=== PATIENT | male | born 1960 | race Two or more races ===

== ENCOUNTER 2022-10-19 14:03 | Inpatient (IN) | payer OTHER ==
[2022-10-19 15:03] VITALS: BMI 23.3
[2022-10-19] MEDS ORDERED: MAG HYDROX/AL HYDROX/SIMETH 30 ML UNIT-DOSE CUP PO PRN (20:06)
[2022-10-19] MEDS ORDERED: BISMUTH SUBSALICYLATE 524 MG/30 ML PO PRN (20:06)
[2022-10-19] MEDS ORDERED: IBUPROFEN 400 MG TABLET (FP) PO PRN (20:06)
[2022-10-19] MEDS ORDERED: MELATONIN 5 MG TABLETS PO PRN (20:06)
[2022-10-19] MEDS ORDERED: ACETAMINOPHEN 325 MG TABLET (FP) PO PRN ×2 (20:06)
[2022-10-19] MEDS ORDERED: NICOTINE 7 MG/24 HOURS TOPICAL PATCH TD PRN (20:06)
[2022-10-19] MEDS ORDERED: DICYCLOMINE HCL 10 MG CAPSULE PO PRN (20:06)
[2022-10-19] MEDS ORDERED: BENZOCAINE/MENTHOL (CHLORASEPTIC ) LOZENGE MM PRN (20:06)
[2022-10-19] MEDS ORDERED: ONDANSETRON *ODT* 4 MG TABLET SL PRN (20:06)
[2022-10-19] MEDS ORDERED: POLYETHYLENE GLYCOL (HEALTHYLAX) 3350 17 GM PACKET PO PRN (20:06)
[2022-10-19] MEDS ORDERED: MAGNESIUM HYDROX 2400MG/30ML ORAL SUSPENSION 30 ML CUP PO PRN (20:06)
[2022-10-19] MEDS ORDERED: METHOCARBAMOL 500 MG TABLET PO PRN (20:06)
[2022-10-19] MEDS ORDERED: LOPERAMIDE HCL 2 MG CAPSULE PO PRN (20:06)
[2022-10-19] MEDS ORDERED: IBUPROFEN 600 MG TABLET (FP) PO PRN (20:06)
[2022-10-19] MEDS ORDERED: guaiFENesin 200 MG/10 ML 10 ML UNIT-DOSE CUPS PO PRN (20:06)
[2022-10-19] MEDS: THIAMINE HCL 100 MG TABLET (FP) PO SCH (23:23)
[2022-10-20] MEDS ORDERED: PRENATAL VITAMINS W/ FOLIC ACID TABLET (FP) PO SCH ×2 (10:00→15:45)
[2022-10-20 18:31] VITALS: RESP 18
[2022-10-20] MEDS ORDERED: QUEtiapine FUMARATE 50 MG TABLET PO SCH (22:00)
[2022-10-20] MEDS: THIAMINE HCL 100 MG TABLET (FP) PO SCH (22:37)
[2022-10-21 09:30] VITALS: BP 122/71; PULSE 95; TEMP 98.1
== END 2022-10-21 10:28 | disposition home or self-care (01) | DRG 897 ==
LOC: YASAS 14:03 → Y6N 21:44
PROVIDERS: ADMIT Allergy & Immunology; ATTEND Surgery
PROC: HZ2ZZZZ Detoxification Services for Substance Abuse Treatment (ICD-10-PCS; principal; 2022-10-19)
DX: F10.230 Alcohol dependence with withdrawal, uncomplicated (principal); F17.210 Nicotine dependence, cigarettes, uncomplicated; G47.00 Insomnia, unspecified; M25.551 Pain in right hip; M25.552 Pain in left hip; Z86.19 Personal history of other infectious and parasitic diseases; Z99.89 Dependence on other enabling machines and devices; Z28.310 Unvaccinated for COVID-19; Z28.9 Immunization not carried out for unspecified reason; Z88.8 Allergy status to other drugs, medicaments and biological substances; Z91.014 Allergy to mammalian meats
CPT/HCPCS: C9803-CS; U0003; U0005